=== PATIENT | female | born 1965 | race Two or more races ===

== ENCOUNTER 2021-10-06 08:22 | Outpatient (CLI) | payer OTHER | END 2021-10-06 08:25 | disposition home or self-care (01) | LOC: LAB 08:22 | DX: I70.0 Atherosclerosis of aorta (principal); D64.9 Anemia, unspecified; N39.0 Urinary tract infection, site not specified; R10.9 Unspecified abdominal pain; E03.9 Hypothyroidism, unspecified; E78.5 Hyperlipidemia, unspecified; E55.9 Vitamin D deficiency, unspecified; Z12.11 Encounter for screening for malignant neoplasm of colon; M15.0 Primary generalized (osteo)arthritis ==

== ENCOUNTER 2022-01-03 11:28 | Outpatient (CLI) | payer OTHER | END 2022-01-03 11:38 | disposition home or self-care (01) | LOC: MAMO-SONO 11:28 | DX: N60.01 Solitary cyst of right breast (principal); N60.02 Solitary cyst of left breast ==

== ENCOUNTER 2022-02-21 08:14 | Outpatient (CLI) | payer OTHER | END 2022-02-21 08:26 | disposition home or self-care (01) | LOC: TOM 08:14 | PROVIDERS: ATTEND Obstetrics & Gynecology | DX: R19.01 Right upper quadrant abdominal swelling, mass and lump (principal) ==

== ENCOUNTER 2022-06-01 09:25 | Outpatient (CLI) | payer OTHER | END 2022-06-01 09:32 | disposition home or self-care (01) | LOC: RAD 09:25 | PROVIDERS: ATTEND Surgery Surgery of the Hand | DX: G56.00 Carpal tunnel syndrome, unspecified upper limb (principal) ==

== ENCOUNTER 2022-10-18 13:24 | Outpatient (CLI) | payer OTHER | END 2022-10-18 13:28 | disposition home or self-care (01) | LOC: RAD 13:24 | DX: J01.10 Acute frontal sinusitis, unspecified (principal) ==

== ENCOUNTER 2022-12-07 11:56 | Outpatient (CLI) | payer OTHER | END 2022-12-07 12:04 | disposition home or self-care (01) | LOC: RAD 11:56 | DX: M47.22 Other spondylosis with radiculopathy, cervical region (principal); M47.15 Other spondylosis with myelopathy, thoracolumbar region ==

== ENCOUNTER → 2022-12-14 12:51 | Outpatient (CLI) | payer OTHER | END | disposition home or self-care (01) | LOC: NUCLEAR 12:51 | DX: M81.0 Age-related osteoporosis without current pathological fracture (principal) ==

== ENCOUNTER 2023-04-15 10:54 | Outpatient (CLI) | payer OTHER | END 2023-04-15 10:58 | disposition home or self-care (01) | LOC: TOM 10:54 | PROVIDERS: ATTEND Anesthesiology | DX: K62.5 Hemorrhage of anus and rectum (principal) ==

== ENCOUNTER 2023-08-24 08:12 | Outpatient (CLI) | payer OTHER | END 2023-08-24 08:17 | disposition home or self-care (01) | LOC: RAD 08:12 | DX: I70.0 Atherosclerosis of aorta (principal) ==

== ENCOUNTER 2024-09-04 07:55 | Outpatient (CLI) | payer OTHER | END 2024-09-04 07:56 | disposition home or self-care (01) | LOC: NUCLEAR 07:55 | DX: I11.9 Hypertensive heart disease without heart failure (principal) ==

== ENCOUNTER 2024-09-06 13:38 | Emergency (ER) | payer OTHER ==
[~2024-09-06] VITALS: Ht 154.9 cm; Wt 77.1 kg
[2024-09-06] MEDS ORDERED: LIPITOR40 M1 PO (14:17)
[2024-09-06] MEDS ORDERED: LEXAPRO5 MG PO (14:17)
[2024-09-06] MEDS ORDERED: LOSARTAN POTASS25 MG PO (14:17)
[2024-09-06] MEDS ORDERED: TETANUS & DIPHTHERIA TOX,ADULT 0.5 ML VIAL IM ONE (16:30)
[2024-09-06] MEDS ORDERED: LIDOCAINE HCL 1% 10ML VIAL PERCUT ONE (16:30)
[2024-09-06] MEDS ORDERED: LIDOCAINE HCL 1% 10ML VIAL ONE (16:35)
[2024-09-06] MEDS ORDERED: DIPHTH,PERTUSS(ACELL),TET VAC 0.5 ML SYRINGE IM ONE (16:35)
== END 2024-09-06 19:01 | disposition home or self-care (01) ==
LOC: ER 13:40
DX: S01.81XA Laceration without foreign body of other part of head, initial encounter (principal); S09.90XA Unspecified injury of head, initial encounter; W19.XXXA Unspecified fall, initial encounter; Y93.89 Activity, other specified; Y92.098 Other place in other non-institutional residence as the place of occurrence of the external cause; Y99.8 Other external cause status; I10 Essential (primary) hypertension
CPT/HCPCS: 12011; 70450; 90471; 90714; 96372; J1670

== ENCOUNTER 2024-09-13 08:04 | Emergency (ER) | payer OTHER ==
[~2024-09-13] VITALS: Ht 154.9 cm; Wt 76.7 kg
[~2024-09-13 08:04] MED LIST: LEXAPRO5 MG PO; LIPITOR40 M1 PO; LOSARTAN POTASS25 MG PO
== END 2024-09-13 08:38 | disposition home or self-care (01) ==
LOC: ER 08:05
DX: Z48.02 Encounter for removal of sutures (principal)

== ENCOUNTER 2024-09-21 13:25 | Outpatient (CLI) | payer OTHER | END 2024-09-21 13:32 | disposition home or self-care (01) | LOC: RAD 13:25 | PROVIDERS: ATTEND Chiropractor | DX: M99.01 Segmental and somatic dysfunction of cervical region (principal); M99.02 Segmental and somatic dysfunction of thoracic region; M99.03 Segmental and somatic dysfunction of lumbar region; M99.04 Segmental and somatic dysfunction of sacral region; M99.05 Segmental and somatic dysfunction of pelvic region ==